=== PATIENT | female | born 1990 | race Caucasian/White ===

== ENCOUNTER 2020-11-13 14:10 | Emergency (ER) | payer OTHER ==
[2020-11-13 14:19] VITALS: BP 132/85; PULSE 93; TEMP 97; BMI 30.7
[2020-11-13] MEDS ORDERED: TETANUS AND DIPHTHERIA TOXOID 0.5 ML DISP.SYRIN IM ONE (15:14)
[2020-11-13] MEDS ORDERED: IBUPROFEN 400 MG TABLET (FP) PO ONE ×2 (15:18→15:21)
[2020-11-13] MEDS ORDERED: DIPHTH,PERTUSS(ACELL),TET 0.5 ML DISP.SYRIN IM ONE ×2 (15:22)
[2020-11-13] MEDS ORDERED: BACITRACIN 0.9 GM PACKET ONE (15:23)
[2020-11-14] MEDS ORDERED: BACITRACIN/POLYMYXIN B SULFATE 15 GM TUBE TP SCH (10:00)
== END 2020-11-13 17:05 | disposition home or self-care (01) ==
LOC: JER 14:10
PROC: 3E0234Z Introduction of Serum, Toxoid and Vaccine into Muscle, Percutaneous Approach (ICD-10-PCS; principal; 2020-11-13)
DX: S30.810A Abrasion of lower back and pelvis, initial encounter (principal); S60.512A Abrasion of left hand, initial encounter; S50.811A Abrasion of right forearm, initial encounter; S50.812A Abrasion of left forearm, initial encounter
CPT/HCPCS: 90715; 99284-25